=== PATIENT | male | born 1990 | race Two or more races ===

== ENCOUNTER 2018-03-30 13:01 | Emergency (ER) | payer MEDICAID ==
[~2018-03-30] VITALS: Ht 185.4 cm; Wt 97.5 kg
[2018-03-30 14:31] LABS: Basophils # (auto) 0.1 uL; Basophils % (auto) 0.9 % (0.0-2.0); Eosinophils # (auto) 0.2 uL; Eosinophils % (auto) 1.8 % (0.0-7.0); Hemoglobin 16.6 g/dL (13.5-17.5); Lymphocytes # (auto) 2.5 uL; Lymphocytes % (auto) 29.7 % (10.0-50.0); Mean Corpuscular Hemoglobin 30.5 pg (28.0-32.0); Mean Corpuscular Hgb Conc. 34.6 g/dL (32.0-36.0); Monocytes # (auto) 0.9 uL; Monocytes % (auto) 10.7 % (0.0-12.0); Neutrophils # (auto) 4.8 uL; Neutrophils % (auto) 56.9 % (37.0-80.0); Platelet Count (auto) 270 10^3/uL (140-450); Red Blood Cells 5.45 10^6/uL (4.5-5.90); Red Cell Distribution Width 13.7 % (11.8-14.3); White Blood Cell 8.5 10^3/uL (4.4-10.8)
[2018-03-30 14:54] LABS: Albumin 4.7 g/dL (3.4-5.0); Anion Gap 10 (5-15); Blood Urea Nitrogen 15 mg/dL (7-18); Calcium 9.4 mg/dL (8.5-10.1); Carbon Dioxide 25 mmol/L (21-32); Chloride 106 mmol/L (98-107); Glucose 85 mg/dL (74-106); Magnesium 2.6 mg/dL (1.6-2.6); Potassium 3.9 mmol/L (3.5-5.1); Sodium 141 mmol/L (136-145)
[2018-03-30 14:56] LABS: Alanine Aminotransferase 104 U/L (16-61); Aspartate Aminotransferase 38 U/L (15-37); BUN/Creatinine Ratio 15.2; GFR African American 115 mL/min; GFR Non-African American 95 mL/min
[2018-03-30 15:02] LABS: Alkaline Phosphatase 75 U/L (45-117); Bilirubin, Total 0.7 mg/dL (0.2-1.0); Total Protein 9.3 g/dL (6.4-8.2)
[2018-03-30 16:36] VITALS: BP 141/91
== END 2018-03-30 16:16 | disposition home or self-care (01) ==
LOC: ER 13:01
DX: R07.89 Other chest pain (principal); F43.9 Reaction to severe stress, unspecified
CPT/HCPCS: 36415; 71046; 80053; 83735; 84484; 85025; 93005

== ENCOUNTER 2023-12-07 17:43 | Emergency (ER) | payer SELFPAY ==
[2023-12-07 18:10] VITALS: BP 139/92; PULSE 107; RESP 18; TEMP 99.6; O2SAT 100
[2023-12-07] MEDS: HYDROcodone-ACET 5/325MG TAB PO ONE (20:45)
[2023-12-07] MEDS ORDERED: IBUP-1456 PO (22:01)
== END 2023-12-07 22:02 | disposition home or self-care (01) ==
LOC: ER 17:43
DX: S52.501A Unspecified fracture of the lower end of right radius, initial encounter for closed fracture (principal); W18.09XA Striking against other object with subsequent fall, initial encounter; Y93.89 Activity, other specified; Y92.89 Other specified places as the place of occurrence of the external cause; Y99.8 Other external cause status
CPT/HCPCS: 29125; 73110